=== PATIENT | male | born 1955 | race Caucasian/White ===

== ENCOUNTER 2022-09-27 09:16 | Emergency (ER) | payer MEDICARE, BC ==
[2022-09-27] MEDS ORDERED: Aspirin 81 MG Tab.Chew PO ONE (09:30)
[2022-09-27] MEDS ORDERED: Sodium Chloride 0.9% 10 ML Syringe FLUSH PRN (09:30)
[2022-09-27] MEDS ORDERED: Nitroglycerin 0.4 MG Tab.SL SL PRN (09:30)
[2022-09-27] MEDS ORDERED: Morphine 4 MG/ML Syringe IVPUSH PRN (09:30)
[2022-09-27] MEDS ORDERED: Alum Hydrox/Mag Hydrox/Simeth 15 ML, Lidocaine 2% 15 ML PO ONE ×2 (09:32)
[2022-09-27] MEDS ORDERED: Heparin Sodium 5,000 Units/ML Vial IVPUSH ONE (10:17)
[2022-09-27] MEDS ORDERED: Heparin Sodium/D5W 25,000 UNITS/500 ML BAG IV SCH (10:30)
[2022-09-27] MEDS ORDERED: Carvedilol 3.125 MG Tab PO ONE (10:32)
== END 2022-09-27 11:00 ==
LOC: JP.ED 09:16
DX: I21.4 Non-ST elevation (NSTEMI) myocardial infarction (principal); I10 Essential (primary) hypertension; Z79.82 Long term (current) use of aspirin; Z87.891 Personal history of nicotine dependence; Z20.822 Contact with and (suspected) exposure to COVID-19
CPT/HCPCS: 36415; 71045; 71045-26; 80048; 84484; 85025; 85610; 85730; 93005; 93010; 96365; 99285; 99285-25; A9270-GY; J1644; U0002

== ENCOUNTER 2022-10-19 13:43 | Emergency (ER) | payer MEDICARE, BC ==
[2022-10-19 15:52] LABS: TROPONIN I HIGH SENSITIVITY 22.1 pg/mL (<=60.3)
== END 2022-10-19 15:30 | disposition home or self-care (01) ==
LOC: JP.ED 13:43
DX: I25.10 Atherosclerotic heart disease of native coronary artery without angina pectoris (principal); I11.9 Hypertensive heart disease without heart failure; E78.00 Pure hypercholesterolemia, unspecified; E87.70 Fluid overload, unspecified; Z79.82 Long term (current) use of aspirin; Z79.02 Long term (current) use of antithrombotics/antiplatelets; Z79.899 Other long term (current) drug therapy; Z87.891 Personal history of nicotine dependence; Z95.5 Presence of coronary angioplasty implant and graft
CPT/HCPCS: 36415; 80048; 83880; 84484; 85025; 93005; 99283

== ENCOUNTER 2024-05-06 13:18 | Emergency (ER) | payer MEDICARE, BC ==
[2024-05-06] MEDS ORDERED: Morphine 4 MG/ML Syringe IVPUSH PRN (13:31)
[2024-05-06] MEDS ORDERED: Sodium Chloride 0.9% 10 ML Syringe FLUSH PRN (13:31)
[2024-05-06] MEDS ORDERED: Nitroglycerin 0.4 MG Tab.SL SL PRN (13:31)
[2024-05-06 13:38] LABS: BASOPHILS ABSOLUTE AUTO 0.05 K/uL (0.00-0.10); BASOPHILS PERCENT AUTO 0.4 % (0.1-1.3); EOSINOPHILS ABSOLUTE AUTO 0.04 K/uL (0.00-0.40); EOSINOPHILS PERCENT AUTO 0.3 % (0.0-5.4); HEMATOCRIT 47.1 % (38.4-49.7); HEMOGLOBIN 15.9 g/dL (12.9-16.9); IMMATURE GRAN ABSOLUTE AUTO 0.04 K/uL (0.00-0.23); IMMATURE GRAN PERCENT AUTO 0.3 % (0.0-0.7); LYMPHOCYTES ABSOLUTE AUTO 1.84 K/uL (0.8-3.3); LYMPHOCYTES PERCENT AUTO 15.1 % (11.4-47.7); MEAN CORPUSCULAR HEMOGLOBIN 27.9 pg (31.6-35.5); MEAN CORPUSCULAR HGB CONC 33.8 g/dL (31.6-35.5); MEAN CORPUSCULAR VOLUME 82.8 fL (81.4-99.0); MONOCYTES ABSOLUTE AUTO 0.78 K/uL (0.20-0.90); MONOCYTES PERCENT AUTO 6.4 % (3.3-12.6); NEUTROPHILS ABSOLUTE AUTO 9.41 K/uL (1.0-7.6); NEUTROPHILS PERCENT AUTO 77.5 % (40.0-78.1); PLATELET COUNT,PLT 314 K/uL (130-375); RED BLOOD CELL COUNT 5.69 M/uL (4.14-5.76); WHITE BLOOD CELL COUNT,WBC 12.2 K/uL (3.2-11.0)
[2024-05-06 13:51] LABS: A/G RATIO 1.1 (1.2-2.2); ALANINE AMINOTRANSFERASE,ALT 30 U/L (12-78); ALBUMIN 4.2 g/dL (3.4-5.0); ALKALINE PHOSPHATASE 77 U/L (46-116); ANION GAP 9.9 mmol/L (5.0-14.0); ASPARTATE AMNIOTRANSFERASE,AST 23 U/L (15-37); BILIRUBIN TOTAL 0.5 mg/dL (0.2-1.0); BLOOD UREA NITROGEN,BUN 12 mg/dL (7-18); CALCIUM 9.7 mg/dL (8.5-10.1); CARBON DIOXIDE,CO2 30 mmol/L (21-32); CHLORIDE,CL 103 mmol/L (100-108); CREATININE 1.2 mg/dL (0.8-1.3); EST CRCL DRUG DOSING (CG) 62.75 mL/min; ESTIMATED GFR 66 mL/min (>60); GLUCOSE RANDOM 115 mg/dL (74-106); POTASSIUM,K 3.7 mmol/L (3.6-5.2); PROTEIN TOTAL,TP 8.1 g/dL (6.4-8.2); SODIUM,NA 143 mmol/L (140-148); TROPONIN I HIGH SENSITIVITY 8.7 pg/mL (<=60.3)
[2024-05-06] MEDS: Aspirin 81 MG Tab.Chew PO ONE (13:52)
== END 2024-05-06 15:38 | disposition home or self-care (01) ==
LOC: JP.ED 13:18
DX: R07.89 Other chest pain (principal); I25.10 Atherosclerotic heart disease of native coronary artery without angina pectoris; I10 Essential (primary) hypertension; E78.00 Pure hypercholesterolemia, unspecified; Z79.899 Other long term (current) drug therapy; Z79.82 Long term (current) use of aspirin
CPT/HCPCS: 36415; 71045; 80053; 83605; 84484; 85025; 93005; 99285; A9270